=== PATIENT | female | born 1995 ===

== ENCOUNTER 2018-03-23 08:51 | Emergency (ER) | payer OTHER ==
[~2018-03-23] VITALS: Ht 157.5 cm; Wt 59.0 kg
[2018-03-23] MEDS ORDERED: CRYSELLE-28 TA1 EACH PO (09:04)
[2018-03-23] MEDS ORDERED: LEXAPRO5 MG PO (09:04)
[2018-03-23] MEDS ORDERED: CLEOCIN HCL300 MG PO (11:21)
[2018-03-23] MEDS ORDERED: CLEOCIN T60 GM TOP (11:21)
== END 2018-03-23 12:22 | disposition home or self-care (01) ==
LOC: ER 08:51
DX: L70.8 Other acne (principal)